=== PATIENT | female | born 1955 | race Asian ===

== ENCOUNTER 2017-10-05 21:14 | Emergency (ER) | payer OTHER ==
[2017-10-05 21:28] VITALS: BP 119/61; PULSE 98; TEMP 98.2; BMI 38.9
--- NOTE | 2017-10-05 23:27 | PDOC ---
History of Present Illness - History of Present Illness Initial Comments: 10/05/17 23:49 Patient is a 62F with PMHx of HTN , who presents with sore throat, cough and nasal congestion since 10/02/17. She came in today because her cough has been bothering her. Her sister, whom she lives with presents with similar cold-like symptoms. She states she took Tylenol around 4pm today. She denies fever, chills, abdominal pain, or vomit. PCP: Samuel Alonso <Martha Horton - Last Filed: 10/05/17 23:56> <Rose Viera - Last Filed: 10/06/17 00:22> - General Chief Complaint: Sore Throat Stated Complaint: THROAT PAIN Time Seen by Provider: 10/05/17 23:25 Past History <Martha Horton - Last Filed: 10/05/17 23:56> - Past Medical History COPD: No HTN: Yes - Suicide/Smoking/Psychosocial Hx Smoking History: Never smoked Have you smoked in the past 12 months: No Information on smoking cessation initiated: No Hx Alcohol Use: No Drug/Substance Use Hx: No Substance Use Type: None <Rose Viera - Last Filed: 10/06/17 00:22> - Past Medical History Allergies/Adverse Reactions: Allergies Allergy/AdvReac Type Severity Reaction Status Date / Time No Known Allergies Allergy Verified 10/05/17 21:25 Review of Systems - Review of Systems Comments:: 10/05/17 23:50 CONSTITUTIONAL: Absent: fever, no chills, no fatigue EYES: Absent: visual changes ENT: Present: sore throat Absent: ear pain CARDIOVASCULAR: Absent: chest pain, no palpitations RESPIRATORY: Present: cough Absent: no SOB GI: Absent: abdominal pain, no nausea, no vomiting, no constipation, no diarrhea GENITOURINARY: Absent: dysuria, no frequency, no hematuria MUSCULOSKELETAL: Absent: back pain, no arthralgia, no myalgia SKIN: Absent: rash NEURO: Absent: headache <Martha Horton - Last Filed: 10/05/17 23:56> *Physical Exam - Vital Signs Last Vital Signs Temp Pulse Resp BP Pulse Ox 98.2 F 98 H 20 119/61 96 10/05/17 21:25 10/05/17 21:25 10/05/17 21:25 10/05/17 21:25 10/05/17 21:25 - Physical Exam Comments: 10/05/17 23:51 GENERAL: Well-appearing, well-nourished. No apparent distress. HEENT: Normocephalic, atraumatic. PERRL, EOM intact. Errythema to back of the throat. Nasal congestion. CARDIOVASCULAR: Normal S1, S2. Regular rate and rhythm. PULMONARY: Clear to auscultation bilaterally. ABDOMEN: Soft, non-distended, non-tender. EXTREMITIES: Normal ROM in all four extremities. No gross deformities. SKIN: Warm, dry. No rash NEUROLOGICAL: No focal neurological deficits. <Martha Horton - Last Filed: 10/05/17 23:56> - Vital Signs Last Vital Signs Temp Pulse Resp BP Pulse Ox 98.2 F 98 H 20 119/61 96 10/05/17 21:25 10/05/17 21:25 10/05/17 21:25 10/05/17 21:25 10/05/17 21:25 <Rose Viera - Last Filed: 10/06/17 00:22> *DC/Admit/Observation/Transfer - Attestations Scribe Attestion: 10/05/17 23:51 Documentation prepared by Martha Horton, acting as medical orderly for Rose Viera MD. <Martha Horton - Last Filed: 10/05/17 23:56> <Rose Viera - Last Filed: 10/06/17 00:22> Diagnosis at time of Disposition: Sore throat, Cough - Discharge Dispostion Disposition: HOME Condition at time of disposition: Stable - Referrals Referrals: Samuel Marks MD [Primary Care Provider] - - Patient Instructions Printed Discharge Instructions: DI for Cough -- Adult, DI for Viral Pharyngitis Additional Instructions: Please take tylenol or ibuprofen for fever and body aches Stay hydrated Rest Return for any worsening symptoms - Post Discharge Activity Forms/Work/School Notes: Back to Work
== END 2017-10-06 00:41 | disposition home or self-care (01) ==
LOC: JERFT 21:14 → JER 21:14
DX: J02.9 Acute pharyngitis, unspecified (principal); B97.89 Other viral agents as the cause of diseases classified elsewhere
CPT/HCPCS: 87070; 87430; 99282-25